=== PATIENT | female | born 1990 | race Caucasian/White ===

== ENCOUNTER 2020-06-05 03:26 | Inpatient (IN) ==
[2020-06-05] MEDS ORDERED: Ondansetron 4 MG/2 ML VIAL IVP PRN ×2 (03:34→21:50)
[2020-06-05] MEDS ORDERED: Metoclopramide 10 MG/2 ML VIAL IVP PRN (03:34)
[2020-06-05] MEDS ORDERED: Famotidine 20 MG/2 ML VIAL IVP PRN (03:34)
[2020-06-05] MEDS ORDERED: Lidocaine 1% 20 ML MDV INFILT PRN (03:34)
[2020-06-05] MEDS ORDERED: Naloxone 0.4 MG/ML INJ IVP PRN (03:34)
[2020-06-05] MEDS ORDERED: 0.9 % Sodium Chloride 1,000 ML IVC SCH (03:45)
[2020-06-05] MEDS ORDERED: D5% in 0.45% NACL 1,000 ML IVC SCH (03:45)
[2020-06-05 04:19] LABS: Basophils % 0.3 %; Eosinophils # 0.1 K/mcL (0.0-0.6); Eosinophils % 1.1 %; Hematocrit 34.6 % (35.3-44.9); Hemoglobin 11.6 g/dL (11.5-15.4); Immature Granulocytes % 0.3 % (0-4); Lymphocytes # 2.1 K/mcL (0.6-4.6); Lymphocytes % 18.2 %; Mean Corpuscular HGB Conc 33.5 g/dL (31.6-35.5); Mean Corpuscular Hemoglobin 29.9 pg (28.0-33.3); Mean Corpuscular Volume 89.2 fL (83.0-100.0); Mean Platelet Volume 10.6 fL (9.4-12.4); Monocytes # 0.8 K/mcL (0.0-1.3); Monocytes % 6.4 %; Neutrophils # 8.6 K/mcL (1.6-8.9); Platelet Count 202 K/mcL (140-400); Red Blood Count 3.88 M/mcL (3.82-4.97); Red Cell Distribution Width 13.6 % (11.5-14.5); Segmented Neutrophils % 73.7 %; White Blood Count 11.7 K/mcL (4.3-11.1)
[2020-06-05 04:37] LABS: Amphetamine Screen,Urine Negative ng/mL (Cutoff=1000); Barbiturate Screen,Urine Negative ng/mL (Cutoff=200); Benzodiazepines Screen,Urine Negative ng/mL (Cutoff=200); Cannabinoid Screen,Urine Positive ng/mL (Cutoff = 50); Cocaine Screen,Urine Negative ng/mL (Cutoff= 300); Opiate Screen,Urine Negative ng/mL (Cutoff=300); Phencyclidine Screen,Urine Negative ng/mL (Cutoff=25)
[2020-06-05] MEDS: miSOPROStoL 25 MCG TABLET PO PRN ×2 (05:04→09:48)
[2020-06-05] MEDS ORDERED: Insulin Human Regular 100 UNIT in 0.9 % Sodium Chloride 100 ML IVC SCH (05:15)
[2020-06-05] MEDS ORDERED: D5% in Water 1,000 ML IVC PRN (05:37)
[2020-06-05] MEDS ORDERED: D5% in 0.45% NACL 1,000 ML IVC PRN (05:45)
[2020-06-05] MEDS ORDERED: EPHEDrine 50 MG/ML VIAL IVP PRN (09:43)
[2020-06-05] MEDS: *HR* FentaNYL (PF) 100 MCG/2 ML VIAL IVP PRN ×2 (09:46→10:57)
[2020-06-05] MEDS ORDERED: Ropivacaine/PF 0.2% 20 ML VIAL ONE (12:16)
[2020-06-05] MEDS ORDERED: *HR* FentaNYL (PF) 100 MCG/2 ML VIAL ONE (12:16)
[2020-06-05] MEDS: D5% in 0.45% NACL 1,000 ML IVC SCH ×2 (13:53→20:47)
[2020-06-05] MEDS ORDERED: Oxytocin 20 units/ LR 1000 mL 20 UNIT/1,000 ML BAG IVC SCH (14:45)
[2020-06-05] MEDS: Epidural Premix (fent/bupiv) 110 ML EP SCH (20:48)
[2020-06-06] MEDS: Epidural Premix (fent/bupiv) 110 ML EP SCH (05:53)
[2020-06-06] MEDS ORDERED: *HR* Dextrose 50 % in Water (Vial) 50 ML VIAL IVP PRN ×2 (10:37→23:58)
[2020-06-06] MEDS ORDERED: Insulin Human Regular 100 UNIT in 0.9 % Sodium Chloride 100 ML IVC SCH (10:39)
[2020-06-06] MEDS ORDERED: Famotidine 20 MG/2 ML VIAL IVP ONE (13:28)
[2020-06-06] MEDS ORDERED: Oxytocin 20 units/ LR 1000 mL 20 UNIT/1,000 ML BAG IVC ONE (13:28)
[2020-06-06] MEDS ORDERED: Metoclopramide 10 MG/2 ML VIAL IVP ONE (13:28)
[2020-06-06] MEDS ORDERED: CeFAZolin 2,000 MG/50 ML BAG IVPB ONE (13:28)
[2020-06-06] MEDS ORDERED: Ringers Solution, Lactated 1,000 ML IVC SCH (13:30)
[2020-06-06] MEDS ORDERED: Ringers Solution, Lactated 1,000 ML ONE (14:34)
[2020-06-06] MEDS ORDERED: *HR* Oxytocin 10 UNIT/ML VIAL IM ONE ×2 (14:35→16:05)
[2020-06-06] MEDS ORDERED: Dexamethasone 4 MG/ML VIAL ONE (14:35)
[2020-06-06] MEDS ORDERED: Azithromycin 500 MG in 0.9 % Sodium Chloride 250 ML IVPB ONE (14:35)
[2020-06-06] MEDS ORDERED: Ondansetron 4 MG/2 ML VIAL ONE (14:35)
[2020-06-06] MEDS ORDERED: Lidocaine/EPI 1:200k 2% PF 20 ML VIAL ONE (14:36)
[2020-06-06] MEDS ORDERED: Ketorolac 30 MG/ML VIAL ONE (14:36)
[2020-06-06] MEDS ORDERED: *HR* Morphine Sulfate/PF 10 MG/10 ML AMPUL ONE (15:21)
[2020-06-06] MEDS ORDERED: Ondansetron 4 MG/2 ML VIAL IVP PRN ×2 (15:46→18:43)
[2020-06-06] MEDS ORDERED: Metoclopramide 10 MG/2 ML VIAL IVP PRN (18:43)
[2020-06-06] MEDS ORDERED: NON-FORMULARY MEDICATION 1 EACH EACH (Insulin Lispro [Humalog] 0 UNIT) SQ SCH (18:43)
[2020-06-06] MEDS ORDERED: Oxytocin 20 units/ LR 1000 mL 20 UNIT/1,000 ML BAG IVC SCH ×2 (18:43)
[2020-06-06] MEDS ORDERED: Rho Immune Globulin 1,500 UNIT SYRINGE IM ONE (18:43)
[2020-06-06] MEDS: Ibuprofen 600 MG TABLET PO SCH (19:47)
[2020-06-06] MEDS: Sennosides 8.6 MG TABLET PO SCH (19:47)
[2020-06-06] MEDS: Insulin DETEMIR 100 UNIT/ML X5UNITS SQ SCH (20:57)
[2020-06-06] MEDS: *HR* OxyCODONE/APAP 5/325 TABLET PO PRN (22:01)
[2020-06-06] MEDS ORDERED: D5% in Water 1,000 ML IVC PRN (23:58)
[2020-06-06] MEDS ORDERED: Dextrose Gel 15 GM/37.5 ML TUBE PO PRN ×2 (23:58)
[2020-06-07] MEDS: Insulin LISPRO 300 UNITS/3 ML VIAL SQ SCH ×4 (01:32→23:59)
[2020-06-07] MEDS: Ibuprofen 600 MG TABLET PO SCH ×3 (04:11→18:12)
[2020-06-07 08:11] LABS: Basophils # 0.1 K/mcL (0.0-0.2); Basophils % 0.3 %; Eosinophils # 0.2 K/mcL (0.0-0.6); Eosinophils % 0.8 %; Hematocrit 31.4 % (35.3-44.9); Hemoglobin 10.4 g/dL (11.5-15.4); Immature Granulocytes % 0.6 % (0-4); Lymphocytes # 1.3 K/mcL (0.6-4.6); Lymphocytes % 6.8 %; Mean Corpuscular HGB Conc 33.1 g/dL (31.6-35.5); Mean Corpuscular Hemoglobin 29.9 pg (28.0-33.3); Mean Corpuscular Volume 90.2 fL (83.0-100.0); Mean Platelet Volume 10.9 fL (9.4-12.4); Monocytes # 0.6 K/mcL (0.0-1.3); Monocytes % 3.1 %; Neutrophils # 16.8 K/mcL (1.6-8.9); Platelet Count 201 K/mcL (140-400); Red Blood Count 3.48 M/mcL (3.82-4.97); Red Cell Distribution Width 13.8 % (11.5-14.5); Segmented Neutrophils % 88.4 %
[2020-06-07] MEDS: Prenatal Vit/FA 1 EACH TABLET PO SCH (08:54)
[2020-06-07] MEDS: Acetaminophen 325 MG TABLET PO SCH ×3 (08:54→18:12)
[2020-06-07] MEDS: Insulin DETEMIR 100 UNIT/ML X5UNITS SQ SCH (17:39)
[2020-06-07] MEDS: Sennosides 8.6 MG TABLET PO SCH (21:13)
[2020-06-07] MEDS: Simethicone 80 MG TAB.CHEW PO PRN (21:14)
[2020-06-08] MEDS: Ibuprofen 600 MG TABLET PO SCH ×2 (00:12→05:47)
[2020-06-08] MEDS: Acetaminophen 325 MG TABLET PO SCH ×2 (00:12→05:48)
[2020-06-08] MEDS: Prenatal Vit/FA 1 EACH TABLET PO SCH (10:28)
[2020-06-08] MEDS: *HR* OxyCODONE/APAP 5/325 TABLET PO PRN (10:28)
[2020-06-08] MEDS: Simethicone 80 MG TAB.CHEW PO PRN (10:28)
[2020-06-08 11:18] VITALS: BP 106/68
== END 2020-06-08 15:30 | disposition home or self-care (01) | DRG 540 ==
LOC: 1NENULAB 03:26 → 1NENUOBS 06-06 18:32
PROVIDERS: ADMIT Obstetrics & Gynecology; ATTEND Obstetrics & Gynecology